=== PATIENT | female | born 1960 | race Hispanic/Latino ===

== ENCOUNTER 2025-10-15 16:50 | Emergency (ER) | payer SELFPAY ==
[~2025-10-15 16:50] MED LIST: Iopamidol 370 76% 100 ML VIAL ONE
[2025-10-15 17:36] LABS: #Basophils 0.1 thou/uL (0.0-0.2); #Eosinophils 0.0 thou/uL (0.0-0.7); #Lymphocytes 1.5 thou/uL (1.20-3.40); #Monocytes 0.3 thou/uL (0.11-0.59); #Neutrophils 4.5 thou/uL (1.40-6.50); %Basophils 0.9 % (0.0-1.0); %Eosinophils 0.1 % (0.0-10.0); %Lymphocytes 23.2 % (21.0-51.0); %Monocytes 5.2 % (0.0-10.0); %Neutrophils 70.6 % (42.0-75.0); Hematocrit 47.3 % (36.0-47.0); Hemoglobin 15.4 g/dL (12.0-16.0); Mean Corpuscular Hemoglobin 30.1 pg (27.0-31.0); Mean Corpuscular Volume 92.4 fl (78.0-98.0); Platelet Count 346 10x3/uL (130-400); Red Blood Cell (RBC) Count 5.12 mill/uL (4.20-5.40); White Blood Cell (WBC) Count 6.3 10x3/uL (4.8-10.8)
[2025-10-15 17:51] LABS: ALT (SGPT) Less than 7 U/L (Less than 34); AST (SGOT) 22 U/L (11-34); Albumin 4.5 g/dL (3.1-4.5); Alkaline Phosphatase 124 U/L (40-110); Anion Gap 16 mmol/L (10-20); BUN (Urea Nitrogen) 17 mg/dL (9.8-20.1); Bilirubin, Total 0.7 mg/dL (0.3-1.2); Calc. Creatinine Clearance 0 mL/min (70-130); Calcium 9.6 mg/dL (7.8-10.44); Carbon Dioxide 24 mmol/L (23-31); Chloride 101 mmol/L (98-107); Globulin 3.0 g/dL (2.4-3.5); Glucose 104 mg/dL (80-115); Lipase 23 U/L (8-78); Potassium 4.0 mmol/L (3.5-5.1); Sodium 137 mmol/L (136-145)
[2025-10-15] MEDS ORDERED: Simethicone Chewable 80 MG TAB ONE (18:00)
[2025-10-15 18:46] LABS: Glucose, Urine (Dipstick) Negative (Negative); Leukocyte Negative (Negative); Protein, Urine (Dipstick) Negative (Neg-Trace); Specific Gravity, Urine 1.015 (1.005-1.030)
[2025-10-15 18:53] LABS: Bacteria/HPF Rare-Few HPF (None Seen); CAUTI Indications for Culture Pelvic or flank pain; RBC/HPF 0-3 HPF (0-3); Urine Culture Reflex No No; WBC/HPF 0-3 HPF (0-3)
[2025-10-15] MEDS ORDERED: Losartan 25 MG TAB ONE (20:41)
== END 2025-10-15 20:54 | disposition home or self-care (01) ==
LOC: MADERS 16:50
DX: R10.30 Lower abdominal pain, unspecified (principal); R35.0 Frequency of micturition; I10 Essential (primary) hypertension; G20.A1 Parkinson's disease without dyskinesia, without mention of fluctuations; K21.9 Gastro-esophageal reflux disease without esophagitis; Z79.899 Other long term (current) drug therapy
CPT/HCPCS: 74174; 80053; 81001; 83605; 83690; 85025; 94760; 96372; 96374; 96375; 96376; J2270; J7120; Q9967